=== PATIENT | female | born 1965 | race Caucasian/White ===

== ENCOUNTER → 2018-01-25 | Outpatient (CLI) | payer OTHER ==
[~2018-01-25] MED LIST: IOPAMIDOL 370 MG/ML 200 ML INFUS..BTL INJ ONE; SODIUM CHLORIDE 0.9% 250ML 250 ML ONE; SODIUM CHLORIDE 0.9% 500ML 500 ML ONE; SODIUM CHLORIDE 0.9% 50ML 50 ML ONE
[2018-01-25 12:25] LABS: CREATININE, SERUM 1.21 mg/dL (0.57-1.11)
--- NOTE | 2018-01-25 13:53 | Diagnostic Imaging Report ---
EXAM: CT angiogram chest with contrast/pulmonary embolus protocol INDICATION: Tachycardia/hypotension . Rule out pulmonary embolus. COMPARISON: None. TECHNIQUE: CT angiogram scanned utilizing a multidetector helical scanner after administration of IV contrast. Coronal and sagittal reformations were obtained. IV CONTRAST: 100 mL Isovue-370 COMPLICATIONS: None RADIATION DOSE: Total DLP: 467 mGy*cm Estimated effective dose: (DLP x 0.015 x size factor) mSv CTDIvol has been reviewed. It is below the limits set by the Radiation Protocol Committee (RPC). Appropriate CT dose reduction techniques were utilized. FINDINGS: Lines and Tubes: None. Lower Neck: The visualized thyroid gland is grossly unremarkable with no suspicious or significant nodule identified. Heart and Great Vessels: The aorta and main pulmonary artery measure 30 and 29 mm. respectively. No pericardial effusion. No pulmonary embolus identified. Peripheral-most evaluation limited by motion. Lymph Nodes: No suspicious adenopathy. Calcified lymph nodes incidentally noted. Lungs: Respiratory motion limits evaluation. No pneumothorax or pleural effusion. No focal consolidation. Trachea and central bronchi are unremarkable. Upper abdomen: Limited evaluation with no acute findings. Bones and Soft Tissues: No acute findings. IMPRESSION: 1. No central pulmonary embolus. Peripheral evaluation somewhat limited by respiratory motion artifact. Signed by: Dr. Jose Elias Cunningham MD on 01/25/2018 1:50 PM
== END ==
LOC: CT 09:59
PROVIDERS: ATTEND Internal Medicine Interventional Cardiology
DX: R00.0 Tachycardia, unspecified (principal); I95.9 Hypotension, unspecified; Z86.711 Personal history of pulmonary embolism
CPT/HCPCS: 36415; 71260; 82565; 84520; 96361; J7040; J7050; Q9967; 96360